=== PATIENT | male | born 1995 | race Caucasian/White ===

== ENCOUNTER 2022-09-23 03:50 | Emergency (ER) | payer OTHER ==
[~2022-09-23] VITALS: Ht 175.3 cm; Wt 61.2 kg
[2022-09-23 04:04] VITALS: BP 118/85
--- NOTE | 2022-09-23 04:18 | NUR ---
PT TO 12
--- NOTE | 2022-09-23 04:26 | NUR ---
URINE COLLECTED AND SENT TO LAB
--- NOTE | 2022-09-23 04:38 | NUR ---
27YR OLD MALE BIB SELF C/O RLQ ABD PAIN XTODAY. PT STATES PAIN STARTED AT 1600 FOLLOWED WITH N/V. DENIES SOB CP OR FEVER . DENIES DIARRHEA. RLQ PAIN 7/10 PAIN LEVEL. PT IS A&OX4 . 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 HOB ELEVATED. NKDA NO MED HX
[2022-09-23] MEDS ORDERED: ONDANSETRON 4 MG ODT PO ONE (04:40)
[2022-09-23] MEDS ORDERED: DICYCLOMINE 20 MG/2 ML VIAL IM ONE (04:40)
[2022-09-23] MEDS ORDERED: BEN10 PO (05:32)
[2022-09-23] MEDS ORDERED: ONDA-188 PO (05:32)
--- NOTE | 2022-09-23 05:32 | NUR ---
PO CHALLENGE COMPLETED PT TOLERATED WELL. PENDING DISPO
[2022-09-23 05:38] VITALS: BP 120/74
--- NOTE | 2022-09-23 05:38 | NUR ---
Patient discharged with v/s stable. Written and verbal after care instructions given and explained. Patient verbalized understanding. Ambulatory with steady gait. All questions addressed prior to discharge. Advised to follow up with PMD.
== END 2022-09-23 05:38 | disposition home or self-care (01) ==
LOC: MED 03:50
DX: R11.2 Nausea with vomiting, unspecified (principal); R10.9 Unspecified abdominal pain; R68.83 Chills (without fever)
CPT/HCPCS: 96372; 99283; J0500; Q0162